=== PATIENT | male | born 1960 | race Caucasian/White ===

== ENCOUNTER 2018-07-19 09:22 | Outpatient (RCR) | payer MEDICARE, MEDICAID, SELFPAY ==
[2018-07-19 09:52] VITALS: BP 123/68; PULSE 67; RESP 24; TEMP 36.9; BMI 53.1
--- NOTE | 2018-07-19 12:20 | PCM.WC.HP ---
(1) Diabetic foot ulcer associated with type 2 diabetes mellitus Status: Chronic Current Visit: Yes Qualifiers: Diabetic foot ulcer location: midfoot Laterality: left Code(s): E11.621 - Type 2 diabetes mellitus with foot ulcer; L97.509 - Non-pressure chronic ulcer of other part of unspecified foot with unspecified severity (2) Type 2 diabetes mellitus Status: Acute Current Visit: Yes Code(s): E11.9 - Type 2 diabetes mellitus without complications (3) Lymphedema of both lower extremities Status: Acute Current Visit: Yes Code(s): I89.0 - Lymphedema, not elsewhere classified (4) Morbid obesity Status: Acute Current Visit: Yes Code(s): E66.01 - Morbid (severe) obesity due to excess calories History of Present Illness Chief Complaint: Nonhealing left foot ulcer. History of Wound: Mr. Javier is a 58-year-old with past medical history amongst others as stated above who presented here due to nonhealing left foot ulcer. He has been managed for about 4 months at the [facility] but per patient, he was discharged without healing. He has subsequently been managed at his nursing facility without significant healing. He states that his diabetes is very well controlled. Denies any known history of peripheral arterial disease. Feels well otherwise and denies chills, fever or feeling of unwell. Past Medical History Past Medical History: Chronic Problems Diabetic foot ulcer associated with type 2 diabetes mellitus (Chronic) Smoking Status: Former smoker Review of Systems Constitutional: Denies: Anorexia, Chills, Fever, Night Sweats Eyes: Denies: Blurred vision HEENT: Denies: Difficulty Hearing, Difficulty Swallowing Cardiovascular: Denies: Chest Pain Respiratory: Denies: Hemoptysis Gastrointestinal: Denies: Abdominal Pain, Hematemesis, Vomiting Skin: Denies: Jaundice - Physical Exam Vital Signs Temp Pulse Resp BP 98.4 F 67 24 H 123/68 H 07/19/18 09:52 07/19/18 09:52 07/19/18 09:52 07/19/18 09:52 General: Alert, Oriented x3, Cooperative, No apparent distress HEENT: Atraumatic, Normocephalic Oral: Moist Mucosa Neck: Supple Lungs: Normal air movement Cardiovascular: Regular rate Abdomen: Non Tender, Obese Extremities: No cyanosis, Edema Skin: Ulcer/ Wound Wound Measurements and Assessment WC - Nurse 1 - General Ulcer Measurement Start: 07/19/18 09:52 Freq: Status: Active Protocol: Activity Type Activity Date Activity User E-Sign Co-Sign Detail Recorded Client Recorded Date Recorded By Document 07/19/18 09:52 DL [id number] 07/19/18 10:30 DL 07/19/18 09:52 Wound Center Nurse 1 [Ulcer Assessment] #1 LEFT LATERAL PLANTAR DFU -Current Size (cm) - Length 0.8 -Current Size (cm) - Width 0.7 -Current Size (cm) - Depth 0.3 -Total Square Cm 0.56 -Photo Taken Yes -Undermining/Tunneling Starts (O' 6 clock) -Undermining/Tunneling Ends (O'clock) 12 -Maximum Distance (cm) 0.4 -Classification - Thickness Full Thickness without Exposed Support Structure -Classification - Bhatia Grading ( Grade 3 Diabetic Ulcer) -Exudate Amt Small -Exudate Type Sanguineous -Wound Margin Thickened -Granulation Amt Medium (34-66%) -Granulation Quality Red -Necrosis Amt Medium (34-66%) -Necrotic Tissue Type Adherent Slough -Texture (Awilda-wound Skin Appearance) Callus Localized Edema Scarring -Moisture (Awilda-wound Skin Appearance Dry/Scaly ) -Color (Awilda-wound Skin Appearance) Hemosiderin Staining Rubor -Temperature (Awilda-wound Skin No Abnormality Appearance) (Pt Warm) -Tenderness on Palpation (Awilda-wound Yes Skin Appearance) -Ulcer Cleansing Wound Cleanser -Foul Odor after Cleansing No -Anesthetic Used 5% Lidocaine Gel [Edema Assessment] -Right Calf (cm) 60 -Right Ankle (cm) 35 -Left Calf (cm) 56 -Left Ankle (cm) 34 - Nurse 2 - General Ulcer CM Notes Start: 07/19/18 09:52 Freq: Status: Active Protocol: Activity Type Activity Date Activity User E-Sign Co-Sign Detail Recorded Client Recorded Date Recorded By Document 07/19/18 11:16 MW [id number] 07/19/18 11:26 MW 07/19/18 11:16 Wound Center Nurse 2 [Procedure/Treatment] #1 LEFT LATERAL PLANTAR DFU -Time 11:16 -Correct Patient Yes -Correct Side, Site, Position Yes -Correct Procedure Yes -Procedure Performed Yes -Type of Procedure Debridement -Clinical Debridement Subcutaneous -Post Debridement Size (cm) - Length 1.0 -Post Debridement Size (cm) - Width 1.2 -Post Debridement Size (cm) - Depth 0.3 -Total Square Cm 1.20 -Wound/Ulcer Outcome Not Healed -Ulcer Cleansing Rinsed/ Irrigated with Saline -Foul Odor after Cleansing No -Bioengineered Tissue No -Bleeding Controlled with Pressure -Offloading No -Treatment Response Procedure Tolerated Well [See Physician Procedure note for Specifics] Pain Scale: 0-10 Numeric [Pain] -Is Patient Pain Free? Yes Musculoskeletal: No Muscle Wasting Neurological: Cranial nerves II-XII grossly intact Psych/Mental Status: Normal Affect Debridement Note Post-Debridement Measurements/Treatment WC - Nurse 2 - General Ulcer CM Notes Start: 07/19/18 09:52 Freq: Status: Active Protocol: Activity Type Activity Date Activity User E-Sign Co-Sign Detail Recorded Client Recorded Date Recorded By Document 07/19/18 11:16 MW [id number] 07/19/18 11:26 MW 07/19/18 11:16 Wound Center Nurse 2 #1 LEFT LATERAL PLANTAR DFU -Time 11:16 -Correct Patient Yes -Correct Side, Site, Position Yes -Correct Procedure Yes -Procedure Performed Yes -Type of Procedure Debridement -Clinical Debridement Subcutaneous -Post Debridement Size (cm) - Length 1.0 -Post Debridement Size (cm) - Width 1.2 -Post Debridement Size (cm) - Depth 0.3 -Total Square Cm 1.20 -Wound/Ulcer Outcome Not Healed -Ulcer Cleansing Rinsed/ Irrigated with Saline -Foul Odor after Cleansing No -Bioengineered Tissue No -Bleeding Controlled with Pressure -Offloading No -Treatment Response Procedure Tolerated Well Pain Scale: 0-10 Numeric Is Patient Pain Free? Yes Wound debrided: Left Foot Wound Grade/Stage: Grade II Type of Debridement: Excisional debridement Anesthesia Used: 4% Lidocaine Solution Depth: Down to and including healthy tissue, in the subcutaneous layer Percentage of wound debrided: 100 Instrument Used: 3mm curette Tissue Removed: Slough and devitalized tissue Severity: Fat Layer Exposed Amount of bleeding with debridement: Mild Bleeding Controlled with: Pressure Patient tolerated procedure well Assessment/Plan Active Problems Type 2 diabetes mellitus (Acute) Morbid obesity (Acute) Diabetic foot ulcer associated with type 2 diabetes mellitus (Chronic) Lymphedema of both lower extremities (Acute) Assessment: Same as above. Plan: Debridement done as documented above, procedure was well tolerated. Arterial and venous studies ordered. Patient will benefit from off loading with probably an Unna boot however, will wait until studies are back. Continue Promogran with Adaptic over top. Change daily. Rick wraps for edema management. A1c also ordered. Optimal blood sugar control recommended. All the labs including prealbumin CMP and CBC ordered. Increased protein intake recommended. Advised to elevate lower extremity when sitting in bed. Weight loss and exercise recommended. He was advised to call with any questions or concerns. Follow-up in 1 week. This note was generated with [employer] dictation software. It may contain incorrect words, spelling, and punctuation that were not noted in checking the note before signing.
--- NOTE | 2018-07-19 12:24 | HP.PCM_ITS ---
(1) Diabetic foot ulcer associated with type 2 diabetes mellitus Status: Chronic Current Visit: Yes Qualifiers: Diabetic foot ulcer location: midfoot Laterality: left Code(s): E11.621 - Type 2 diabetes mellitus with foot ulcer; L97.509 - Non- pressure chronic ulcer of other part of unspecified foot with unspecified severity (2) Type 2 diabetes mellitus Status: Acute Current Visit: Yes Code(s): E11.9 - Type 2 diabetes mellitus without complications (3) Lymphedema of both lower extremities Status: Acute Current Visit: Yes Code(s): I89.0 - Lymphedema, not elsewhere classified (4) Morbid obesity Status: Acute Current Visit: Yes Code(s): E66.01 - Morbid (severe) obesity due to excess calories History of Present Illness Chief Complaint: Nonhealing left foot ulcer. History of Wound: Mr. Javier is a 58-year-old with past medical history amongst others as stated above who presented here due to nonhealing left foot ulcer. He has been managed for about 4 months at the [facility] but per patient, he was discharged without healing. He has subsequently been managed at his nursing facility without significant healing. He states that his diabetes is very well controlled. Denies any known history of peripheral arterial disease. Feels well otherwise and denies chills, fever or feeling of unwell. Past Medical History Past Medical History: Chronic Problems Diabetic foot ulcer associated with type 2 diabetes mellitus (Chronic) Smoking Status: Former smoker Review of Systems Constitutional: Denies: Anorexia, Chills, Fever, Night Sweats Eyes: Denies: Blurred vision HEENT: Denies: Difficulty Hearing, Difficulty Swallowing Cardiovascular: Denies: Chest Pain Respiratory: Denies: Hemoptysis Gastrointestinal: Denies: Abdominal Pain, Hematemesis, Vomiting Skin: Denies: Jaundice - Physical Exam Vital Signs Temp Pulse Resp BP 98.4 F 67 24 H 123/68 H 07/19/18 09:52 07/19/18 09:52 07/19/18 09:52 07/19/18 09:52 General: Alert, Oriented x3, Cooperative, No apparent distress HEENT: Atraumatic, Normocephalic Oral: Moist Mucosa Neck: Supple Lungs: Normal air movement Cardiovascular: Regular rate Abdomen: Non Tender, Obese Extremities: No cyanosis, Edema Skin: Ulcer/ Wound Wound Measurements and Assessment WC - Nurse 1 - General Ulcer Measurement Start: 07/19/18 09:52 Freq: Status: Active Protocol: Activity Type Activity Date Activity User E-Sign Co-Sign Detail Recorded Client Recorded Date Recorded By Document 07/19/18 09:52 DL [id number] 07/19/18 10:30 DL 07/19/18 09:52 Wound Center Nurse 1 [Ulcer Assessment] #1 LEFT LATERAL PLANTAR DFU -Current Size (cm) - Length 0.8 -Current Size (cm) - Width 0.7 -Current Size (cm) - Depth 0.3 -Total Square Cm 0.56 -Photo Taken Yes -Undermining/Tunneling Starts (O' 6 clock) -Undermining/Tunneling Ends (O'clock) 12 -Maximum Distance (cm) 0.4 -Classification - Thickness Full Thickness without Exposed Support Structure -Classification - Bhatia Grading ( Grade 3 Diabetic Ulcer) -Exudate Amt Small -Exudate Type Sanguineous -Wound Margin Thickened -Granulation Amt Medium (34-66%) -Granulation Quality Red -Necrosis Amt Medium (34-66%) -Necrotic Tissue Type Adherent Slough -Texture (Awilda-wound Skin Appearance) Callus Localized Edema Scarring -Moisture (Awilda-wound Skin Appearance Dry/Scaly ) -Color (Awilda-wound Skin Appearance) Hemosiderin Staining Rubor -Temperature (Awilda-wound Skin No Abnormality Appearance) (Pt Warm) -Tenderness on Palpation (Awilda-wound Yes Skin Appearance) -Ulcer Cleansing Wound Cleanser -Foul Odor after Cleansing No -Anesthetic Used 5% Lidocaine Gel [Edema Assessment] -Right Calf (cm) 60 -Right Ankle (cm) 35 -Left Calf (cm) 56 -Left Ankle (cm) 34 - Nurse 2 - General Ulcer CM Notes Start: 07/19/18 09:52 Freq: Status: Active Protocol: Activity Type Activity Date Activity User E-Sign Co-Sign Detail Recorded Client Recorded Date Recorded By Document 07/19/18 11:16 MW [id number] 07/19/18 11:26 MW 07/19/18 11:16 Wound Center Nurse 2 [Procedure/Treatment] #1 LEFT LATERAL PLANTAR DFU -Time 11:16 -Correct Patient Yes -Correct Side, Site, Position Yes -Correct Procedure Yes -Procedure Performed Yes -Type of Procedure Debridement -Clinical Debridement Subcutaneous -Post Debridement Size (cm) - Length 1.0 -Post Debridement Size (cm) - Width 1.2 -Post Debridement Size (cm) - Depth 0.3 -Total Square Cm 1.20 -Wound/Ulcer Outcome Not Healed -Ulcer Cleansing Rinsed/ Irrigated with Saline -Foul Odor after Cleansing No -Bioengineered Tissue No -Bleeding Controlled with Pressure -Offloading No -Treatment Response Procedure Tolerated Well [See Physician Procedure note for Specifics] Pain Scale: 0-10 Numeric [Pain] -Is Patient Pain Free? Yes Musculoskeletal: No Muscle Wasting Neurological: Cranial nerves II-XII grossly intact Psych/Mental Status: Normal Affect Debridement Note Post-Debridement Measurements/Treatment WC - Nurse 2 - General Ulcer CM Notes Start: 07/19/18 09:52 Freq: Status: Active Protocol: Activity Type Activity Date Activity User E-Sign Co-Sign Detail Recorded Client Recorded Date Recorded By Document 07/19/18 11:16 MW [id number] 07/19/18 11:26 MW 07/19/18 11:16 Wound Center Nurse 2 #1 LEFT LATERAL PLANTAR DFU -Time 11:16 -Correct Patient Yes -Correct Side, Site, Position Yes -Correct Procedure Yes -Procedure Performed Yes -Type of Procedure Debridement -Clinical Debridement Subcutaneous -Post Debridement Size (cm) - Length 1.0 -Post Debridement Size (cm) - Width 1.2 -Post Debridement Size (cm) - Depth 0.3 -Total Square Cm 1.20 -Wound/Ulcer Outcome Not Healed -Ulcer Cleansing Rinsed/ Irrigated with Saline -Foul Odor after Cleansing No -Bioengineered Tissue No -Bleeding Controlled with Pressure -Offloading No -Treatment Response Procedure Tolerated Well Pain Scale: 0-10 Numeric Is Patient Pain Free? Yes Wound debrided: Left Foot Wound Grade/Stage: Grade II Type of Debridement: Excisional debridement Anesthesia Used: 4% Lidocaine Solution Depth: Down to and including healthy tissue, in the subcutaneous layer Percentage of wound debrided: 100 Instrument Used: 3mm curette Tissue Removed: Slough and devitalized tissue Severity: Fat Layer Exposed Amount of bleeding with debridement: Mild Bleeding Controlled with: Pressure Patient tolerated procedure well Assessment/Plan Active Problems Type 2 diabetes mellitus (Acute) Morbid obesity (Acute) Diabetic foot ulcer associated with type 2 diabetes mellitus (Chronic) Lymphedema of both lower extremities (Acute) Assessment: Same as above. Plan: Debridement done as documented above, procedure was well tolerated. Arterial and venous studies ordered. Patient will benefit from off loading with probably an Unna boot however, will wait until studies are back. Continue Promogran with Adaptic over top. Change daily. Rick wraps for edema management. A1c also ordered. Optimal blood sugar control recommended. All the labs including prealbumin CMP and CBC ordered. Increased protein intake recommended. Advised to elevate lower extremity when sitting in bed. Weight loss and exercise recommended. He was advised to call with any questions or concerns. Follow-up in 1 week. This note was generated with [employer] dictation software. It may contain incorrect words, spelling, and punctuation that were not noted in checking the note before signing.
== END 2018-08-09 23:59 ==
LOC: WC 09:22
PROVIDERS: Visit Provider Internal Medicine
DX: E11.621 Type 2 diabetes mellitus with foot ulcer (principal); L97.422 Non-pressure chronic ulcer of left heel and midfoot with fat layer exposed; E66.01 Morbid (severe) obesity due to excess calories; Z68.43 Body mass index [BMI] 50.0-59.9, adult; Z71.3 Dietary counseling and surveillance; I89.0 Lymphedema, not elsewhere classified; Z87.891 Personal history of nicotine dependence
CPT/HCPCS: 11042; 99203; G0463